=== PATIENT | female | born 1955 | race Caucasian/White ===

== ENCOUNTER 2018-01-18 06:16 | Inpatient (IN) | payer BC ==
[2018-01-14 13:43] LABS: Basophils # (auto) 0.1 uL; Basophils % (auto) 1.1 % (0.0-2.0); Eosinophils # (auto) 0.4 uL; Eosinophils % (auto) 3.8 % (0.0-7.0); Hematocrit 47.8 % (36.0-46.0); Hemoglobin 15.7 g/dL (12.2-16.2); Lymphocytes # (auto) 3.1 uL; Lymphocytes % (auto) 32.9 % (10.0-50.0); Mean Corpuscular Hemoglobin 30.5 pg (28.0-32.0); Mean Corpuscular Hgb Conc. 32.9 g/dL (32.0-36.0); Mean Corpuscular Volume 92.8 fL (80.0-100.0); Monocytes # (auto) 0.7 uL; Monocytes % (auto) 7.7 % (0.0-12.0); Neutrophils # (auto) 5.1 uL; Neutrophils % (auto) 54.5 % (37.0-80.0); Platelet Count (auto) 266 10^3/uL (140-450); Red Blood Cells 5.15 10^6/uL (4.0-5.20); Red Cell Distribution Width 13.1 % (11.8-14.3); White Blood Cell 9.4 10^3/uL (4.4-10.8)
[2018-01-14 13:46] LABS: Urine Bacteria FEW /hpf (None Seen); Urine Blood Negative /uL (Negative); Urine Specific Gravity 1.008 (1.001-1.035); Urine WBC 1 /hpf (0 - 5)
[2018-01-14 14:04] LABS: Albumin 3.8 g/dL (3.4-5.0); BUN/Creatinine Ratio 15.8; Bilirubin, Total 0.5 mg/dL (0.2-1.0); Calcium 9.4 mg/dL (8.5-10.1); Potassium 4.2 mmol/L (3.5-5.1); Total Protein 7.8 g/dL (6.4-8.2)
[2018-01-14 14:09] LABS: INR 1.04 (0.9-1.15); Partial Thromboplastin Time 25.7 sec (22.64-33.71); Prothrombin Time 11.3 sec (9.37-12.3)
[~2018-01-18] VITALS: Ht 160 cm; Wt 102.3 kg
[~2018-01-18 06:16] MED LIST: ASP81EC PO; CHOL1000 PO; HYDR25TA4 PO; LISI-646 PO; METF-370 PO; METO-159 PO; SIMV10TA84 PO
[2018-01-18] MEDS ORDERED: CLINDAMYCIN 600MG IV 50 ML IV ONE (06:31)
[2018-01-18] MEDS ORDERED: BUPIVACAINE HCL 50 ML ONE (07:13)
[2018-01-18] MEDS ORDERED: LIDOCAINE W/ EPINEPHRINE 2% INJ 20ML VIAL ONE (07:13)
[2018-01-18] MEDS ORDERED: MIDAZOLAM HCL 1MG/1ML-2 ML VIAL ONE (07:16)
[2018-01-18] MEDS ORDERED: MORPHINE SULF(PF) 0.5MG/ML 10ML VIAL ONE (07:38)
[2018-01-18] MEDS ORDERED: LIDOCAINE HCL 2 %PF INJ 10ML AMP IJ ONE (07:48)
[2018-01-18] MEDS ORDERED: PROPOFOL 10 MG/ML 20 ML IV ONE ×2 (07:49→09:11)
[2018-01-18] MEDS ORDERED: diphenhdrAMINE HCL 50 MG/1 ML VL ONE (08:01)
[2018-01-18] MEDS ORDERED: ACCU-CHEK COMFORT CURVE STRIP VI ONE (08:15)
[2018-01-18] MEDS ORDERED: MORPHINE SULFATE 8mg/ml INJ SDV IV PRN (08:15)
[2018-01-18] MEDS ORDERED: diphenhdrAMINE HCL 50 MG/1 ML VL IV PRN (08:15)
[2018-01-18] MEDS ORDERED: KETOROLAC TROMETH 30 MG/ML 1ML VIAL IV PRN (08:15)
[2018-01-18] MEDS ORDERED: ONDANSETRON HCL 4 MG/2 ML VIAL IV ONE (08:15)
[2018-01-18] MEDS ORDERED: ONDANSETRON HCL 4 MG/2 ML VIAL IV PRN ×2 (08:15→10:30)
[2018-01-18] MEDS ORDERED: NALOXONE HCL 0.4 MG/ML VIAL IV PRN ×2 (08:15)
[2018-01-18] MEDS ORDERED: ePHEDrine SULFATE 50 MG/ML AMP IV PRN (08:15)
[2018-01-18] MEDS ORDERED: TEMAZEPAM 15 MG CAP PO PRN (10:30)
[2018-01-18] MEDS ORDERED: ACETAMINOPHEN 325 MG TAB PO PRN (10:30)
[2018-01-18] MEDS ORDERED: HYDROcodone-ACET 10/325MG TAB PO PRN (10:30)
[2018-01-18] MEDS: LACTATED RINGER'S 1,000 ML IV SCH (12:31)
[2018-01-18 13:00] VITALS: BP 115/67
[2018-01-18] MEDS: SODIUM CHLOR 0.9% PF (SALINE LOCK) 10ML VIAL/SYR IV SCH ×2 (14:25→22:52)
[2018-01-18] MEDS: CLINDAMYCIN 600MG IV 50 ML IV SCH ×2 (14:26→22:51)
[2018-01-18] MEDS ORDERED: DEXTROSE (50%) 50ML SYRG IV PRN (14:45)
[2018-01-18] MEDS: LISINOPRIL 20 MG TAB PO SCH (14:57)
[2018-01-18] MEDS: CHOLECALCIFEROL (VITD3) 1,000 UNIT TAB PO SCH (16:28)
[2018-01-18 16:55] VITALS: BP 120/69
[2018-01-18] MEDS: InsuLIN REG 1unit/0.01ml Soln (100units/ml) SC SCH ×2 (17:00→23:05)
[2018-01-18] MEDS: ACCU-CHEK COMFORT CURVE STRIP VI SCH ×2 (19:25→22:52)
[2018-01-18] MEDS: DOCUSATE SOD 100 MG CAP PO SCH (22:51)
[2018-01-18] MEDS: oxyCODONE ER 10 MG TAB PO SCH (22:51)
[2018-01-18 23:23] VITALS: BP 111/60
[2018-01-19] MEDS: HYDROmorphone HCL 2 MG/ML VL IV PRN ×2 (01:27→16:28)
[2018-01-19 05:22] VITALS: BP 118/68
[2018-01-19] MEDS: CLINDAMYCIN 600MG IV 50 ML IV SCH ×3 (05:25→22:00)
[2018-01-19] MEDS: LACTATED RINGER'S 1,000 ML IV SCH (05:26)
[2018-01-19] MEDS: SODIUM CHLOR 0.9% PF (SALINE LOCK) 10ML VIAL/SYR IV SCH ×3 (05:26→22:01)
[2018-01-19] MEDS: ACCU-CHEK COMFORT CURVE STRIP VI SCH ×4 (06:21→22:01)
[2018-01-19] MEDS: InsuLIN REG 1unit/0.01ml Soln (100units/ml) SC SCH ×4 (06:21→22:00)
[2018-01-19 07:32] LABS: Hematocrit 41.3 % (36.0-46.0)
[2018-01-19 08:24] VITALS: BP 124/76
[2018-01-19] MEDS: DOCUSATE SOD 100 MG CAP PO SCH ×2 (10:11→21:59)
[2018-01-19] MEDS: oxyCODONE ER 10 MG TAB PO SCH ×2 (10:12→22:01)
[2018-01-19] MEDS: CHOLECALCIFEROL (VITD3) 1,000 UNIT TAB PO SCH (10:12)
[2018-01-19] MEDS: ENOXAPARIN SOD 40 MG/0.4 ML SYRINGE SC SCH (10:13)
[2018-01-19] MEDS: LISINOPRIL 20 MG TAB PO SCH (10:13)
[2018-01-19 12:37] VITALS: BP 120/62
[2018-01-19 17:01] VITALS: BP 129/74
[2018-01-19 22:00] VITALS: BP 133/71
[2018-01-20] MEDS: HYDROmorphone HCL 2 MG/ML VL IV PRN ×3 (00:19→22:51)
[2018-01-20] MEDS: LACTATED RINGER'S 1,000 ML IV SCH ×2 (02:25→22:25)
[2018-01-20 05:06] VITALS: BP 151/81
[2018-01-20] MEDS: SODIUM CHLOR 0.9% PF (SALINE LOCK) 10ML VIAL/SYR IV SCH ×3 (06:20→22:25)
[2018-01-20] MEDS: ACCU-CHEK COMFORT CURVE STRIP VI SCH ×4 (06:36→22:25)
[2018-01-20] MEDS: InsuLIN REG 1unit/0.01ml Soln (100units/ml) SC SCH ×4 (06:37→22:51)
[2018-01-20] MEDS: CLINDAMYCIN 600MG IV 50 ML IV SCH (06:42)
[2018-01-20 08:27] LABS: Hemoglobin 13.6 g/dL (12.2-16.2)
[2018-01-20 09:10] VITALS: BP 145/96
[2018-01-20] MEDS: CHOLECALCIFEROL (VITD3) 1,000 UNIT TAB PO SCH (09:15)
[2018-01-20] MEDS: oxyCODONE ER 10 MG TAB PO SCH ×2 (09:15→22:39)
[2018-01-20] MEDS: DOCUSATE SOD 100 MG CAP PO SCH ×2 (09:15→22:38)
[2018-01-20] MEDS: LISINOPRIL 20 MG TAB PO SCH (09:16)
[2018-01-20] MEDS: ENOXAPARIN SOD 40 MG/0.4 ML SYRINGE SC SCH (09:16)
[2018-01-20] MEDS ORDERED: metFORMIN HYDROCHLORIDE 500 MG TAB PO ONE (12:00)
[2018-01-20 12:48] VITALS: BP 134/82
[2018-01-20 17:10] VITALS: BP 158/76
[2018-01-20 22:00] VITALS: BP 137/70
[2018-01-21] MEDS: LACTATED RINGER'S 1,000 ML IV SCH (00:36)
[2018-01-21 05:00] VITALS: BP 135/59
[2018-01-21] MEDS: SODIUM CHLOR 0.9% PF (SALINE LOCK) 10ML VIAL/SYR IV SCH (06:12)
[2018-01-21] MEDS: ACCU-CHEK COMFORT CURVE STRIP VI SCH (06:33)
[2018-01-21] MEDS: InsuLIN REG 1unit/0.01ml Soln (100units/ml) SC SCH (06:34)
[2018-01-21 07:31] LABS: Hematocrit 37.9 % (36.0-46.0)
[2018-01-21 09:07] VITALS: BP 111/49
[2018-01-21] MEDS ORDERED: metFORMIN HYDROCHLORIDE 500 MG TAB PO SCH (10:00)
[2018-01-21] MEDS: CHOLECALCIFEROL (VITD3) 1,000 UNIT TAB PO SCH (10:47)
[2018-01-21] MEDS: DOCUSATE SOD 100 MG CAP PO SCH (10:47)
[2018-01-21] MEDS: oxyCODONE ER 10 MG TAB PO SCH (10:48)
[2018-01-21] MEDS: ENOXAPARIN SOD 40 MG/0.4 ML SYRINGE SC SCH (10:48)
[2018-01-21] MEDS: LISINOPRIL 20 MG TAB PO SCH (10:49)
[2018-01-21 11:21] VITALS: BP 140/55
[2018-01-21 13:00] VITALS: BP 156/79
== END 2018-01-21 16:54 | disposition home health service (06) | DRG 470 ==
LOC: SUR 06:16 → WEST WING 06:17
PROVIDERS: ADMIT Orthopaedic Surgery; ATTEND Internal Medicine
PROC: 0SRD0L9 Replacement of Left Knee Joint with Medial Unicondylar Synthetic Substitute, Cemented, Open Approach (ICD-10-PCS; principal; 2018-01-18 07:19)
DX: M17.12 Unilateral primary osteoarthritis, left knee (principal); E66.01 Morbid (severe) obesity due to excess calories; Z68.41 Body mass index [BMI] 40.0-44.9, adult; S83.232A Complex tear of medial meniscus, current injury, left knee, initial encounter; X58.XXXA Exposure to other specified factors, initial encounter; E11.9 Type 2 diabetes mellitus without complications; E78.5 Hyperlipidemia, unspecified; I10 Essential (primary) hypertension; Z82.49 Family history of ischemic heart disease and other diseases of the circulatory system; Y93.89 Activity, other specified; Y92.89 Other specified places as the place of occurrence of the external cause; Y99.9 Unspecified external cause status; Z88.0 Allergy status to penicillin
CPT/HCPCS: 36415; 73562; 80053; 81001; 82962; 85014; 85018; 85025; 85610; 85730; 86850; 86900; 86901; 97110; 97116; J1815; J2250; J2704; J3490